=== PATIENT | male | born 2000 | race Caucasian/White ===

== ENCOUNTER 2023-06-25 09:23 | Emergency (ER) | payer BC ==
[~2023-06-25] VITALS: Ht 170.2 cm; Wt 90.7 kg
[2023-06-25 10:04] VITALS: BP 125/66; PULSE 98; RESP 18; TEMP 97; O2SAT 98
[2023-06-25] MEDS ORDERED: ONDANSETRON 4 MG/2 ML VIAL IVP ONE (10:45)
[2023-06-25] MEDS ORDERED: MORPHINE SULFATE 4 MG/ML SYR IVP ONE (10:45)
[2023-06-25] MEDS ORDERED: NACL 0.9% 2,000 ML IV ONE (10:45)
[2023-06-25 10:52] LABS: BASOPHILS # (AUTO) 0.1 K/uL (0.00-0.22); BASOPHILS % (AUTO) 0.9 % (0.0-2.0); EOSINOPHILS % (AUTO) 0.2 % (0.0-4.0); HEMOGLOBIN 16.2 g/dL (12.0-18.0); LYMPHOCYTES # (AUTO) 0.3 K/uL (2.0-11.5); LYMPHOCYTES % (AUTO) 2.2 % (20.5-51.1); MEAN CORPUSCULAR HEMOGLOBIN 30 pg (27-31); MEAN CORPUSCULAR HGB CONC 34 g/dL (33-37); MEAN CORPUSCULAR VOLUME 87.6 fL (80-94); MONOCYTES # (AUTO) 0.5 K/uL (0.8-1.0); MONOCYTES % (AUTO) 3.7 % (1.7-9.3); NEUTROPHILS # (AUTO) 13.6 K/uL (1.8-7.7); PLATELET COUNT (AUTO) 165 K/uL (140-450); RED BLOOD CELL COUNT(AUTO) 5.36 MIL/uL (4.20-6.10); RED CELL DISTRIBUTION WIDTH 13.7 % (11.6-13.7); WHITE BLOOD COUNT (AUTO) 14.6 K/uL (4.8-10.8)
[2023-06-25 11:14] LABS: CALCIUM 8.8 mg/dL (8.5-10.1)
[2023-06-25 11:19] LABS: ALBUMIN 3.9 g/dL (3.4-5.0); BILIRUBIN,DIRECT 0.1 mg/dL (0.0-0.3); TOTAL BILIRUBIN 0.5 mg/dL (0.0-1.0)
[2023-06-25] MEDS ORDERED: BISM262T5 PO (11:58)
[2023-06-25] MEDS ORDERED: ACET-9800 PO (11:58)
[2023-06-25] MEDS ORDERED: BEN10 PO (11:58)
[2023-06-25] MEDS ORDERED: ONDA-188 PO (11:58)
[2023-06-25 12:07] VITALS: BP 125/75; PULSE 86; RESP 17; TEMP 97; O2SAT 98
== END 2023-06-25 12:08 | disposition home or self-care (01) ==
LOC: MED 09:23
DX: K52.9 Noninfective gastroenteritis and colitis, unspecified (principal); D72.829 Elevated white blood cell count, unspecified; F12.90 Cannabis use, unspecified, uncomplicated; Z79.899 Other long term (current) drug therapy
CPT/HCPCS: 36415; 74176; 80048; 80076; 83690; 85025; 96361; 96374; 96375; 99285; J2270; J2405; J7030